=== PATIENT | male | born 1945 | race Caucasian/White ===

== ENCOUNTER 2025-02-09 08:16 | Outpatient (REF) | payer MEDICARE, SELFPAY ==
--- OUTSIDE RECORDS SUMMARY | 2025-02-04 23:59 | XMS_ITS | Continuity of Care Document ---
Author Organization [facility] Address [address] [place] [address]- Care Team Providers Care Territory Account Manager Name Role Phone Driss Banerjee MD Primary Care Physician Encounter [facility] [place] Date(s): 01/05/25 - 02/04/25 [facility] [address] [place], [place] [address] Encounter Type: Triage Allergies, Adverse Reactions, Alerts No Known Allergies Immunizations Given and Recorded Vaccine Date Status Refusal Reason SARS-CoV-2(COVID-19)mRNA-LNP vac([id number]) 05/15/24 Recorded influenza virus vaccine, inactivated 02/28/24 Sae rded influenza virus vaccine, inactivated 02/10/23 Sae rded influenza virus vaccine, inactivated 02/10/22 Sae rded influenza virus vaccine, inactivated 02/12/21 Sae rded influenza virus vaccine, inactivated 02/10/20 Sae rded influenza virus vaccine, inactivated 1 03/12/18 Re corded influenza virus vaccine, inactivated 2 04/05/17 Gi ciara influenza virus vaccine, inactivated 3 03/09/16 Gi ciara influenza virus vaccine, inactivated 03/21/15 Give n influenza virus vaccine, inactivated 03/14/14 Give n influenza virus vaccine, inactivated 03/01/13 Give n influenza virus vaccine, inactivated 4 03/02/12 Gi ciara influenza virus vaccine, inactivated 03/04/11 Give n RSV vaccine preF3, recombinant 03/11/23 Recorded [id number] 12y+ bivalent booster vax 02/10/23 Recorded [id number] 12y+ bivalent booster vax 10/02/22 Recorded [id number] bivalent booster vax 02/10/22 Recorded SARS-CoV-2 mRNA ([id number]) vax 09/04/21 Recorded SARS-CoV-2 (COVID-19) mRNA BNT-162b2 vac 02/28/21 Recorded Influenza Virus Vaccine (oldterm) 03/21/19 Recorde d Influenza Virus Vaccine (oldterm) 5 03/11/09 Given Influenza Virus Vaccine (oldterm) 6 03/28/08 Given pneumococcal 13-valent vaccine 7 06/13/18 Given zoster vaccine, inactivated 8 05/28/18 Recorded zoster vaccine, inactivated 9 03/12/18 Recorded pneumococcal 23-valent vaccine 05/26/13 Given FluLaval (oldterm) 03/05/10 Given influ virus vac, H1N1, inactive(oldterm) 09/04/09 Given tetanus-diphtheria toxoids (Td) 03/07/08 Given 1Result Comment: [03/14/2018] given at [facility] 2Result Comment: [04/05/2017] [facility] [id number] 3Result Comment: [03/09/2016] given without incident.....vs 4Admin Note: given w/ o incident 5Admin Note: at work 6Admin Note: at work 7Result Comment: [06/13/2018] [facility]# [id number] pt. tolerated inj. without complications...[place] 8Result Comment: [05/30/2018] [facility] 9Result Comment: [03/14/2018] give deb [facility] Medications Aerochamber See Instructions, # 1 each, Maintenance, To be used with albuterol, 06/18/15 10:27:55 AM EST, Compound Start Date: 06/18/15 Status: Ordered Medication Dispense Status: Completed Quantity: 1.0 Unit: each Total Allowed Fills: 1 Fills Dispensed: 0 albuterol CFC free 90 mcg/inh inhalation aerosol 180 mcg, 2, inhalation, Inhalation, Every 6 hours, PRN, # 8.5 Gm, Refills 11, Tot. Refills 11, Maintenance, 11/16/24 7:35:00 AM EDT, Route to Pharmacy Electronically, [id number], [facility] #[id number], 180, cm, 10/12/24 14:23:00 EDT, Height, 104, kg, 10/12/24 14:23:00EDT, Dry Weight Start Date: 11/16/24 Status: Ordered Medication Dispense Status: Completed Quantity: 8.5 Unit: g Total Allowed Fills: 12 Fills Dispensed: 0 Aleve Caplet sodium 220 mg oral tablet 2 tablet = 440 mg, By Mouth, 2 times a day, PRN leg pain or swelling, # 60 tablet, 0 Refills, Maintenance, 05/01/15 2:26:22 PM EST, Tablet Start Date: 05/01/15 Status: Ordered Medication Dispense Status: Completed Quantity: 60.0 Unit: tablet Total Allowed Fills: 1 Fills Dispensed: 0 azelastine 137 mcg/inh (0.1%) nasal spray 2 sprays, Nares, Both, Daily, PRN Other Allergies, # 30 mL, 5 Refills, Maintenance, 08/25/22 3:49:00 PM EDT, [place], [facility], Partial fill upon patient request if the prescription is for a schedule II opioid drug., 2 sprays Nares, Both Daily,PRN:Other Allergies, 180.34, cm, 0 06/29/22 18:01:00 EST, Height Start Date: 08/25/22 Status: Ordered Medication Dispense Status: Completed Quantity: 30.0 Unit: mL Total Allowed Fills: 6 Fills Dispensed: 0 betamethasone topical valerate 0.1% cream 1 application, Topically, 2 times a day, PRN skin rash, # 15 Gm, 11 Refills, Acute 03/21/16 8:41:00AM EDT, 03/21/15 8:40:45 AM EDT, Cream, [id number], 1 application Topically 2 times a day,PRN:skin rash Start Date: 03/21/15 Stop Date: 03/21/16 Status: Ordered Medication Dispense Status: Completed Quantity: 15.0 Unit: g Total Allowed Fills: 12 Fills Dispensed: 0 Flonase Allergy Relief 50 mcg/inh nasal spray 1 sprays, Nares, Both, Daily, # 16 Gm, 11 Refills, Maintenance, 12/21/23 11:39:00 AM EDT, [id number], Partial fill upon patient request if the prescription is for a schedule II opioiddrug., 180.34, cm, 12/21/23 11:18:00 EDT, Height, 106.6, kg, 12/21/23 11:18:00 EDT, Dry Weight Start Date: 12/21/23 Status: Ordered Medication Dispense Status: Completed Quantity: 16.0 Unit: g Total Allowed Fills: 12 Fills Dispensed: 0 fluticasone-salmeterol 100 mcg-50 mcg inhalation powder 1, puffs, Inhalation, 2 times a day, # 60 each, Refills 5, Tot. Refills 5, Maintenance, 01/05/25 3:34:00 PM EDT, Powder, Route to Pharmacy Electronically, [id number], [id number], replacing flovent, 180, cm, 12/19/24 11:14:00 EDT, Height, 106.9, kg, 12/19/24 11:14:00 EDT, Dry Weight Start Date: 01/05/25 Status: Ordered Medication Dispense Status: Completed Quantity: 60.0 Unit: each Total Allowed Fills: 6 Fills Dispensed: 0 furosemide 20 mg oral tablet 1, tablet, By Mouth, Daily, # 90 tablet, Refills 1, Tot. Refills 1, Maintenance, 09/20/24 10:57:00 AM EDT, Route to Pharmacy Electronically, [facility], 180.34, cm, 06/14/24 8:24:00EST, Height, 104.5, kg, 06/14/24 8:24:00 EST, Dry Weight Start Date: 09/20/24 Status: Ordered Medication Dispense Status: Completed Quantity: 90.0 Unit: tablet Total Allowed Fills: 2 Fills Dispensed: 0 Multivitamin With Minerals See Instructions, one tablet By Mouth daily, 0 Refills, Maintenance, 03/09/16 8:18:44 AM EDT Start Date: 03/09/16 Status: Ordered Medication Dispense Status: Completed Total Allowed Fills: 1 Fills Dispensed: 0 omeprazole 20 mg oral enteric coated capsule 1 capsule = 20 mg, By Mouth, Daily, # 30 capsule, 0 Refills, Maintenance, 09/17/14 6:39:58 PM EDT, EC Capsule Start Date: 09/17/14 Status: Ordered Medication Dispense Status: Completed Quantity: 30.0 Unit: capsule Total Allowed Fills: 1 Fills Dispensed: 0 Proscar 5 mg oral tablet 1 tablet, By Mouth, Daily, # 30 tablet, 0 Refills, Maintenance, 09/04/09 7:17:25 PM EDT, Tablet Start Date: 09/04/09 Status: Ordered Medication Dispense Status: Completed Quantity: 30.0 Unit: tablet Total Allowed Fills: 1 Fills Dispensed: 0 simvastatin 40 mg oral tablet 1, tablet, By Mouth, Daily at bedtime, ok to fill early, # 14 each, Refills 3, Tot. Refills 3, Maintenance, 08/07/24 9:00:00 AM EST, Route to Pharmacy Electronically, [facility] #[id number], 180.34, cm, 06/14/24 8:24:00 EST, Height, 104.5, kg, 06/14/24 8:24:00 EST, Dry Weight Start Date: 08/07/24 Status: Ordered Medication Dispense Status: Completed Quantity: 14.0 Unit: each Total Allowed Fills: 4 Fills Dispensed: 0 Suprep Bowel Prep Kit oral liquid See Instructions, Follow the instruction sheet that will be sent to you from [facility], # 1 each, 0 Refills, Maintenance, 10/28/23 8:24:00 AM EDT, [id number], Partial fill upon patient request if the prescription is for a schedule II opioid drug., Follow the instruction sheet that will be sent to you from [facility], 180.34, cm, 10/28/23 7:59:00 EDT, Height, 97, kg, 04/27/23 13:22:00 EST, Dry Weight Start Date: 10/28/23 Status: Ordered Medication Dispense Status: Completed Quantity: 1.0 Unit: each Total Allowed Fills: 1 Fills Dispensed: 0 tamsulosin 0.4 mg oral capsule 0.8 mg, 2, capsule, By Mouth, Daily, # 30 capsule, Refills 0, Maintenance, 04/20/19 1:24:40 PM EST Start Date: 04/20/19 Status: Ordered Medication Dispense Status: Completed Quantity: 30.0 Unit: capsule Total Allowed Fills: 1 Fills Dispensed: 0 traZODone 50 mg oral tablet See Instructions, 0.5-1 tablet By Mouth Daily at bedtime as needed for sleep, # 30 each, Refills 11, Tot. Refills 11, Maintenance, 06/14/24 8:46:00 AM EST, Instructions Replace Required Details, Route to Pharmacy Electronically, [facility] #[id number], Partial fill upon patient request if the pre scription is for a schedule II opioid drug., 180.34, cm, 06/14/24 8:24:00 EST, Height, 104.5, kg, 06/14/24 8:24:00 EST, Dry Weight Start Date: 06/14/24 Status: Ordered Medication Dispense Status: Completed Quantity: 30.0 Unit: each Total Allowed Fills: 12 Fills Dispensed: 0 Viagra 100 mg oral tablet = 100 mg, By Mouth, Daily, PRN as needed for erectile dysfunction, # 6 Doses, 11 Refills, Maintenance, 10/09/15 10:18:30 AM EDT, [facility] Start Date: 10/09/15 Status: Ordered Medication Dispense Status: Completed Quantity: 6.0 Unit: Doses Total Allowed Fills: 12 Fills Dispensed: 0 Zyrtec 10 mg oral tablet 1 tablet = 10 mg, By Mouth, Daily, # 30 tablet, 0 Refills, Maintenance, 09/06/13 7:03:22 PM EDT, Tablet Start Date: 09/06/13 Status: Ordered Medication Dispense Status: Completed Quantity: 30.0 Unit: tablet Total Allowed Fills: 1 Fills Dispensed: 0 Problem List Condition Confirmation Course Effective Dates Status H ealth Status Informant Atypical chest pain Confirmed Active BPH (benign prostatic hyperplasia) Confirmed Active Chronic sinusitis Confirmed Active Dermatitis Confirmed Active Diverticulosis of colon Confirmed Active Edema Confirmed Active Hyperlipidemia Confirmed Active Indigestion Confirmed Active Lyme disease Confirmed Active ; Asthma Confirmed Active Obese class I Confirmed Active Osteoarthritis Confirmed Active Social History Social History Type Response Smoking Status Former smoker; Tobac co user in household: No entered on: 06/08/13 Sex Sex Representation Male (finding) Patient Care team information Care Team Personnel Name: Driss Banerjee MD Position: S Physician - Primary Care Member Role: PCP Address: [address] [place] [address] [facility] [address] Telecom: Care Team Related Persons Name: VANGIE SOUZA Insurance Providers Guarantor name[facility] Information #: 1 Payer: MEDICARE B Payer Identifier: NA Member Number: [id number] Group Number: NA Subscriber Identifier: NA Relationship to Subscriber: self Coverage Type: NA Coverage Verification Date: NA Telecom: NA Address: NA Health Plan Information #: 2 Payer: FOR LIFE Payer Identifier: NA Member Number: [id number] Group Number: NA Subscriber Identifier: NA Relationship to Subscriber: self Coverage Type: For Life--Medicare Supplement Coverage Verification Date: NA Telecom: Address:
--- NOTE | ~2025-02-09 | US_ITS ---
EXAMINATION: US TRIPLEX LOWER EXTREMITY, BILATERAL CLINICAL INFORMATION: Follow-up exam. Status post treatment, right great saphenous vein.. COMPARISON: No priors are available for comparison. TECHNIQUE: Color-flow triplex imaging with spectral analysis and compression Doppler were performed on the bilateral lower extremities. FINDINGS: Respiratory variation, normal compression and augmented flow are demonstrated throughout the interrogated left common femoral vein, superficial femoral vein, profunda femoral vein, popliteal vein and midcalf peroneal and posterior tibial venous segments. There is incomplete compressibility and augmentation in the right posterior tibialis vein the remaining interrogated veins from the right common femoral vein to the right popliteal vein demonstrated normal phasic flow and compressibility. There is no Jiménez's cyst. US/US venous duplex LE BI IMPRESSION: Occlusive thrombus, right posterior tibialis vein. No acute deep venous thrombosis, left lower extremity. photo technologist discussed the possibility findings to Iva, and Dr. Ayaan Miller was informed/notified with the positive result at 9:30 AM on February 09, 2025. Patient is okay to go home per Dr Miller's order. Electronically signed by: Angelito Sanchez MD 02/09/2025 09:54 AM EDT
--- OUTSIDE RECORDS SUMMARY | 2025-02-09 08:36 | XMS_ITS ---
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
--- OUTSIDE RECORDS SUMMARY | 2025-02-09 08:36 | XMS_ITS | Clinical Summary ---
Author Organization [facility] Address [address] [place] [address] Care Team Providers Care Retoucher Photoengraving Name Role Phone Unavailable Primary Care Provider Unavailabl e Allergies No known active allergies Medications simvastatin (ZOCOR) 40 mg tablet 2 Active montelukast (Singulair) 10 mg tablet TAKE 1 TABLET BY MOUTH DAILY NEEDED FOR SINUS OR EAR SYMPTOMS 2 Active furosemide (Lasix) 20 mg tablet Take 20 mg by mouth 1 (one) time each day. 2 Active ProAir HFA 90 mcg/actuation inhaler 2 Active finasteride (Proscar) 5 mg tablet 2 Active Flovent HFA 220 mcg/actuation inhaler 1 Active azelastine (ASTELIN) 137 mcg (0.1 %) nasal spray USE 2 SPRAYS IN EACH NOSTRIL DAILY NEEDED FOR ALLERGIES 2 Active tamsulosin (Flomax) 0.4 mg 24 hr capsule 2 Active Social History Tobacco Use Types Packs/Day Years Used Date Smoking Tobacco: Never Assessed Sex and Gender Information Value Date Recorded Sex Assigned at Not on file Legal Sex Male 7:01 PM EDT Gender Identity Not on file Sexual Orientation Not on file Last Filed Vital Signs Vital Sign Reading Time Taken Comments Blood Pressure 164/84 12/26/2021 7:11 PM EDT Pulse 71 12/26/2021 7:11 PM EDT Temperature 36.4 C (97.6 F) 12/26/2021 7:11 PM EDT Respiratory Rate 18 12/26/2021 7:11 PM EDT Oxygen Saturation 97% 12/26/2021 7:11 PM EDT Inhaled Oxygen Concentration - - Weight - - Height - - Body Mass Index - - Plan of Treatment Health Maintenance Due Date Last Done Comments Medicare Annual Wellness Visit 1963 Fall Risk Screening 09/28/2011 Tdap and Td Vaccines Adult 03/07/2018 03/07/2008 RSV 60+ (1 - 1-dose 75+ series) 2021 COVID-19 Vaccine ( season) 2025 09/04/2021, 02/28/2021, 08/27/2020, Additional history exists Influenza Vaccine (#1) 2025 , 02/12/2021, 02/10/2020, Additional history exists Zoster Vaccines Completed 05/28/2018, 03/12/2018 Pneumococcal Vaccine: 50+ Years Completed 06/13/2018, 05/26/2013 HIB Vaccines Aged Out No longer eligi ble based on patient's age to complete this topic HPV Vaccines (No Doses Required) Completed Hepatitis A Vaccines Aged Out No long er eligible based on patient's age to complete this topic IPV Vaccines Aged Out No longer eligi ble based on patient's age to complete this topic Meningococcal Vaccine Aged Out No demetrius fermín eligible based on patient's age to complete this topic RSV <20 Months Aged Out No longer silvestre gible based on patient's age to complete this topic Insurance MEDICARE
--- OUTSIDE RECORDS SUMMARY | 2025-02-09 08:36 | XMS_ITS | Clinical Summary ---
Author Organization [facility] [address] [place] [address] [address] [facility] [place] [id number] Care Team Providers Care Spring Upholsterer Name Role Phone Unavailable Primary Care Provider Unavailabl e Medications simvastatin (ZOCOR) 40 mg tablet Take 1 tablet (40 mg total) by mouth nightly. Active albuterol sulfate 90 mcg/actuation HFA aerosol inhaler Inhale 2 puffs into the lungs every 4 (four) hours as needed. 4 Active finasteride (PROSCAR) 5 mg tablet Take 1 tablet (5 mg total) by mouth daily. 4 Active furosemide (LASIX) 20 mg tablet Take 1 tablet (20 mg total) by mouth daily. 4 Active ketoconazole (NIZORAL) 2 % shampoo Apply topically twice a week. 4 Active polyethylene glycol (GLYCOLAX; MIRALAX) 17 gram/dose powder DISSOLVE 17 GRAMS IN 4 TO 8 OUNCES OF BEVERAGE AND TAKE BY MOUTH EVERY DAY 4 Active tamsulosin (FLOMAX) 0.4 mg 24 hr capsule Take 1 capsule (0.4 mg total) by mouth daily. 4 Active Immunizations Immunization Administration Dates Next Due Tdap 12/10/2023 Social History Tobacco Use Types Packs/Day Years Used Date Smoking Tobacco: Never Assessed Sex and Gender Information Value Date Recorded Sex Assigned at Not on file Legal Sex Male 2:07 PM EDT Gender Identity Not on file Sexual Orientation Not on file Last Filed Vital Signs Vital Sign Reading Time Taken Comments Blood Pressure 142/82 12/10/2023 2:15 PM EDT Pulse 86 12/10/2023 2:15 PM EDT Temperature - - Respiratory Rate - - Oxygen Saturation 96% 12/10/2023 2:15 PM EDT Inhaled Oxygen Concentration - - Weight 100.7 kg (222 lb) 12/10/2023 2:15 PM EDT Height 180.3 cm (5' 11 ) 12/10/2023 2:15 PM EDT Body Mass Index 30.96 12/10/2023 2:15 PM EDT Plan of Treatment Health Maintenance Due Date Last Done Comments HIV screening 09/28/1958 Hepatitis C screening 1963 Lipid disorder screening 1986 Diabetes screening 09/28/1991 Covid-19 vaccine series (2024- season) 2025 09/04/2021, 02/28/2021 Influenza vaccine 02/05/2025 02/10/2023, , 02/12/2021, Additional history exists Tetanus adult (Td q 10,TDAP once) 12/09/2033 12/10/2023, 03/07/2008 Shingles vaccine (Shingrix) Completed 05/28/2018, 1 Pneumococcal Vaccine (50+ years) Completed 06/13/2018, 05/26/2013 RSV Immunization Completed 03/11/2023 Colon cancer screening, Colonoscopy Discontinued Meningococcal B Vaccine Aged Out No l onger eligible based on patient's age to complete this topic Meningococcal Vaccine Aged Out No demetrius fermín eligible based on patient's age to complete this topic Insurance MEDICARE MEDICARE MEDICARE
== END 2025-02-09 08:17 | disposition home or self-care (01) ==
LOC: HO.US 08:16
PROVIDERS: PCP Internal Medicine; Visit Provider Student in an Organized Health Care Education/Training Program
DX: I82.441 Acute embolism and thrombosis of right tibial vein (principal); Z98.890 Other specified postprocedural states
CPT/HCPCS: 93970

== ENCOUNTER → 2025-02-09 08:52 | Outpatient (BNV) | payer MEDICARE, SELFPAY | PROVIDERS: PCP Internal Medicine; Visit Provider Radiology Diagnostic Radiology | DX: I82.441 Acute embolism and thrombosis of right tibial vein (principal) | CPT/HCPCS: 93970 ==